=== PATIENT | female | born 1985 | race Caucasian/White ===

== ENCOUNTER 2021-08-28 14:05 | Emergency (ER) | payer MEDICAID, SELFPAY ==
[2021-08-28 14:06] VITALS: BP 140/96; PULSE 96; RESP 18; TEMP 36.3; O2SAT 96; BMI 32.5
--- NOTE | 2021-08-28 16:41 | ED.RN ---
PT REPORTS SHE DOES NOT WANT TO WAIT ANY LONGER. LWBS AT 1635.
== END 2021-08-28 16:35 | disposition left against medical advice (07) ==
LOC: ED 16:47
PROVIDERS: PCP Family Medicine
DX: Z53.21 Procedure and treatment not carried out due to patient leaving prior to being seen by health care provider (principal)

== ENCOUNTER 2022-11-29 09:35 | Emergency (ER) | payer MEDICAID, SELFPAY ==
[2022-11-29 09:36] VITALS: BP 122/83; PULSE 97; RESP 14; TEMP 36.2; O2SAT 100; BMI 30.9
--- NOTE | 2022-11-29 10:02 | EDS_ITS ---
HPI History of Present Illness Chief Complaint: Other, Pain/Inj Informant: patient Narrative Narrative: Patient is a 36-year-old female denies any significant past medical history presenting with neck stiffness. Patient states she woke up on Sunday morning (3 days ago) with a stiff neck. She states feels like she slept on it wrong. It is on the right side. She is continue to have pain since. Every once while she will have shooting pain into her right arm. It is mainly in her humerus area sometimes in the front and sometimes in the back. She denies any weakness or numbness of her hands. She denies any fever or rash. She denies any vision changes. She denies any speech changes. She denies any trauma or new activities. She has tried ice and heat (feels that heat helps more), [place] and [place] balm. She did take ibuprofen the first night and takes ibuprofen PM in the evenings to help her sleep. She did go to [facility] emergency room yesterday and waited about 4 hours but was never seen in the left. No other complaints at this time. Notes that she does not have a primary care doctor. [facility] Medical History no medical history Home Medications prednisone 20 mg tablet 40 mg PO DAILY@0800 6 days 05/22/16 [Rx Last Taken Unknown] cyclobenzaprine 10 mg tablet 10 mg PO TID PRN Muscle Spasm #20 TABLETS 11/29/22 [Rx Last Taken Unknown] ibuprofen 600 mg tablet 600 mg PO Q6H PRN pain #20 tabs 11/29/22 [Rx Last Taken Unknown] Allergy/AdvReac Type Severity Reaction Status Date / Time ketorolac tromethamine AdvReac Nausea/Vom/ Verified 11/29/22 09:36 [From Toradol] Diarrhea Family History no significant family his Surgical History no surgical history Social History Smoking Status: Current every day smoker EXAM Physical Exam Const Vital Signs: 11/29/22 09:36 Temperature 97.2 F L Temperature Source Temporal Pulse Rate 97 Respiratory Rate 14 Blood Pressure 122/83 H Blood Pressure Mean 96 Pulse Ox 100 Oxygen Delivery Method Room Air Positive well nourished, well developed and obese General Appearance ED: well developed and NAD Nutritional Appearance: obese HEENT Reports TM's clear and moist mucous membranes Negative for trauma or tenderness Tympanic Membrane ED: Yes TM's clear Eyes PERRL and EOMs intact bilaterally Neck supple and no JVD Neck Narrative: Mild right paraspinal tenderness to palpation. Range of motion intact however patient has pain with active range of motion especially with flexion extension compared to passive range of motion. No nuchal rigidity. No midline tenderness. Chest Wall inspection of chest normal and palpation of chest normal Resp normal respiratory effort and clear to auscultation bilaterally Cardio regular rate, regular rhythm and no murmurs Extremity normal to inspection Extremity Narrative: No deformity of the extremities. No pinpoint area of tenderness. Normal strength and sensation in all dermatomes of the upper extremities. Normal intrinsic and extrinsic movements of the hands. Neuro oriented x3, CN's II-XII intact bilaterally and no sensory deficits noted Sensorium / Orientation: alert Motor Exam: strength 5/5 throughout; Negative for general weakness Psych mental status grossly normal Skin no rashes or lesions noted MDM MDM MDM Narrative Medical decision making narrative: Patient's evaluated for 3 days of atraumatic neck pain. Seems to be more muscle skeletal and associate with the trapezius muscle. Patient not have any nuchal rigidity. She denies any fever. No neurologic symptoms at this time. Suspect this is a muscle strain. Differential also includes degenerative disc disease and less likely meningitis as discitis. As patient does not have any systemic symptoms including fever or meningeal signs I think is are less likely I do not think further work-up for this is indicated. She does not have any trauma I do not think any imaging is indicated. Patient will be treated with NSAIDs in the ER and given a prescription for NSAIDs as well as of Flexeril. Counseled to not mix any p.m. medication with muscle relaxers as they both sedating. Patient verbalizes agreement understand this plan. Counseled to continue using heat to her neck. She is given referral for primary care doctor she does not currently have one. Patient given return precautions. She verbalized a good understand with this plan. Discharged home in stable condition. Discharge Plan Triage Chief Complaint: Other, Pain/Inj ED Provider: Marichuy Murrell Dx/Rx/DC Orders Clinical Impression: Acute strain of neck muscle, Trapezius muscle spasm Instructions: ED Neck Spasm, No Trauma Prescriptions: New ibuprofen 600 mg tablet 600 mg PO Q6H PRN (Reason: pain) Qty: 20 0RF cyclobenzaprine 10 mg tablet 10 mg PO TID PRN (Reason: Muscle Spasm) Qty: 20 0RF No Action prednisone 20 MG tablet 40 mg PO DAILY@0800 6 Days 0RF Primary Care Provider: Care Physician,No Primary Referrals: Colleen Lopez MD [Med Staff - [employer]] - Sita Butcher [Non-Staff] - Activity Restrictions/Additional Instructions: Alternate ibuprofen and Tylenol. Continue to use moist heat to your neck. Do gentle stretching and range of motion with your shoulder and neck. If you develop a fever, or rash or worsening symptoms please return to the emergency room. Disposition Disposition: Home, Self Care
[2022-11-29] MEDS: Ibuprofen 600 MG Tablet PO (10:07)
== END 2022-11-29 10:18 | disposition home or self-care (01) ==
PROVIDERS: Emergency Provider Emergency Medicine; Visit Provider Emergency Medicine
DX: S16.1XXA Strain of muscle, fascia and tendon at neck level, initial encounter (principal); M62.838 Other muscle spasm; F17.200 Nicotine dependence, unspecified, uncomplicated; E66.9 Obesity, unspecified; X58.XXXA Exposure to other specified factors, initial encounter
CPT/HCPCS: 99283